=== PATIENT | female | born 1940 | race African-American/Black ===

== ENCOUNTER 2019-10-13 04:41 | Emergency (ER) | payer OTHER ==
[~2019-10-13] VITALS: Ht 162.6 cm; Wt 53.9 kg
[2019-10-13] MEDS ORDERED: ONDANSETRON HCL 4MG/2ML INJ IV STA (04:44)
[2019-10-13 05:03] LABS: BASOPHILS % 1.1 % (0.0-2.0); EOSINOPHILS % 1.9 % (0.0-5.0); HEMATOCRIT. 34.5 % (36.0-48.0); HEMOGLOBIN. 11.2 g/dL (12.0-16.0); MEAN CORPUSCULAR HEMOGLOBIN 28.1 pg (28.0-32.0); MEAN CORPUSCULAR VOLUME 86.4 fL (81.0-99.0); MEAN PLATELET VOLUME 10.8 fl (7.4-10.4); MONOCYTES % 11.5 % (2.0-8.0); NEUTROPHILS % 50.5 % (40.0-76.0); PLATELET 122 x1000/uL (130-400); RED CELL DISTRIBUTION WIDTH 16.9 % (11.6-14.6)
[2019-10-13] MEDS ORDERED: LORAZEPAM 2MG/ML CPJ IV STA (05:07)
[2019-10-13 05:10] LABS: CHLORIDE 115 mEq/L (98-107)
[2019-10-13 05:15] LABS: INR 1.1; PROTHROMBIN TIME 11.5 sec (9.6-11.0)
[2019-10-13 05:17] LABS: LDL CHOLESTEROL 46 mg/dL (5-100)
[2019-10-13 06:13] LABS: CLARITY URINE CLOUDY (CLEAR); COLOR URINE YELLOW (YELLOW); KETONES URINE NEGATIVE (NEGATIVE); LEUKOCYTE ESTERASE URINE TRACE (NEGATIVE); NITRITE URINE NEGATIVE (NEGATIVE); OCCULT BLOOD URINE NEGATIVE (NEGATIVE); PROTEIN URINE NEGATIVE (NEGATIVE); SPECIFIC GRAVITY URINE 1.015 (1.005-1.030); UROBILINOGEN URINE 0.2 E.U./dL (0.2-1.0)
[2019-10-13] MEDS ORDERED: ASPIRIN 300MG SUPP PR ONE (06:15)
[2019-10-13] MEDS ORDERED: ASPIRIN 325MG EC TABLET PO ONE (09:45)
[2019-10-13 09:48] VITALS: BP 148/78
== END 2019-10-13 11:54 | disposition short-term general hospital (02) ==
LOC: ER 04:41 → CANBEDREQ 18:31
DX: I63.9 Cerebral infarction, unspecified (principal); R47.81 Slurred speech; R79.89 Other specified abnormal findings of blood chemistry; E11.9 Type 2 diabetes mellitus without complications; Z86.73 Personal history of transient ischemic attack (TIA), and cerebral infarction without residual deficits
CPT/HCPCS: 36415; 70450; 71045; 80053; 81003; 82962; 83721; 84484; 85025; 85610; 93005; 99285; J2060; J2405